=== PATIENT | male | born 1945 | race African-American/Black ===

== ENCOUNTER 2017-03-07 07:32 | Outpatient (CLI) | payer BC ==
[~2017-03-07] VITALS: Ht 174 cm; Wt 108.9 kg
[2017-03-07] MEDS ORDERED: TAMS0.4C2 PO (07:56)
[2017-03-07] MEDS ORDERED: GOSE3.6I SQ (07:56)
[2017-03-07] MEDS ORDERED: FURO40TA4 PO (07:56)
[2017-03-07] MEDS ORDERED: SIMV20TA3 PO (07:56)
[2017-03-07] MEDS ORDERED: VITA1CAP PO (07:56)
[2017-03-07] MEDS ORDERED: ATEN25TA PO (07:56)
[2017-03-07] MEDS ORDERED: ABIR250T PO (07:56)
[2017-03-07] MEDS ORDERED: PRED2.5T PO (07:56)
[2017-03-07] MEDS ORDERED: POTA20TA82 PO (07:56)
[2017-03-07 08:03] LABS: BASO # 0.1 x10^3/uL (0.0-0.2); BASO % 1 % (0-3); EOS % 2 % (0-3); HEMATOCRIT 40.7 % (39.0-53.0); LYMPH # 2.9 x10^3/uL (1.0-4.8); LYMPH % 35 % (24-48); MEAN CORPUSCULAR HEMOGLOBIN 27 pg (25-35); MEAN CORPUSCULAR HGB CONC 32 g/dL (31-37); MEAN CORPUSCULAR VOLUME 85 fL (79-100); MONO % 10 % (0-9); NEUT % 53 % (31-73); PLATELET COUNT 206 x10^3/uL (140-400); RED BLOOD COUNT 4.76 x10^6/uL (4.30-5.70); RED CELL DISTRIBUTION WIDTH 15.2 % (11.5-14.5); WHITE BLOOD COUNT 8.5 x10^3/uL (4.0-11.0)
[2017-03-07 08:13] LABS: PROTHROMBIN TIME PATIENT 12.1 SEC (11.7-14.0)
[2017-03-07 08:15] VITALS: BP 159/90
[2017-03-07] MEDS ORDERED: LIDOCAINE 1%/EPI 1:100,000 20 ML VIAL. ONE (09:26)
[2017-03-07] MEDS ORDERED: MIDAZOLAM HCL/PF 5 MG/5 ML VIAL. ONE (09:38)
[2017-03-07] MEDS ORDERED: fentaNYL PF VIAL 250 MCG/5 ML VIAL ONE (09:38)
--- NOTE | 2017-03-07 09:44 | PDOC ---
MODERATE SEDATION ASSESSMENT RISKS/ALTERNATIVES Risks/Alternatives Risks and alternatives of this type of sedation and procedure discussed with: RISK/ALTERNATIVES: Patient H & P ON CHART H & P H & P on chart and reviewed for co-morbid conditions and appropriate labs. H&P ON CHART: Yes STATUS PREG STATUS ASSESSED: N/A MEDS/ALLERGIES REVIEWED Meds/Allergies Reviewed Medications and Allergies including time and route of recently administered narcotics and sedatives. MEDS/ALLERGIES REVIEWED: Yes ASA RATING ASA RATING: II AIRWAY ASSESSMENT Airway Assessment Airway patency, oral function limitations, presence of caps, crowns, dentures, partials, and ability to extend neck assessed. AIRWAY ASSESSMENT: Yes MALLAMPATI SCORE MALLAMPATI SCORE: II PRE-SEDATION ASSESSMENT PRE-SEDATION ASSESSMENT: Yes KURTIS MAX MD March 07, 2017 09:44
--- NOTE | 2017-03-07 09:47 | PDOC1 ---
History and Physical Date of Procedure Date of Admission 03/07/17 Procedure Procedure Power Port removal Indication Indication 71 YO male with prostate cancer---chemotx complete. Power Port no longer needed. Past Medical History Past Medical History See Nursing Pre procedure PMH Past Surgical History Past Surgical History See Pre Procedure PSH Current Medications Current Medications Current Medications Lidocaine/ Epinephrine (Xylocaine 1%-Epi 1:100,000) 20 ml STK-MED ONCE .ROUTE ; Start 03/07/17 at 09:26; Stop 03/07/17 at 09:27; Status DC Heparin Sodium/ Sodium Chloride 500 ml @ As Directed STK-MED ONCE .ROUTE ; Start 03/07/17 at 09:26; Stop 03/07/17 at 09:27; Status DC Midazolam HCl (Versed) 5 mg STK-MED ONCE .ROUTE ; Start 03/07/17 at 09:38; Stop 03/07/17 at 09:39; Status DC Fentanyl Citrate (Fentanyl 5ml Vial) 250 mcg STK-MED ONCE .ROUTE ; Start at 09:38; Stop 03/07/17 at 09:39; Status DC Active Scripts Active Reported Simvastatin 20 Mg Tablet 1 Tab PO QHS Vitamin B Complex 1 Each Capsule 1 Each PO DAILY Potassium Chloride 20 Meq Tablet.er 20 Meq PO BID Furosemide 40 Mg Tablet 1 Tab PO DAILY Atenolol 25 Mg Tablet 25 Mg PO DAILY Tamsulosin Hcl 0.4 Mg Cap.er.24h 1 Cap PO DAILY Zoladex (Goserelin Acetate) 3.6 Mg Implant 3.6 Mg SQ [id number] Zytiga (Abiraterone Acetate) 250 Mg Tablet 250 Mg PO QID Prednisone 2.5 Mg Tablet 5 Mg PO DAILY Allergies Allergies: Coded Allergies: No Known Drug Allergies (Unverified , 03/07/17) Physical Exam Vital Signs Vital Signs Date Time Temp Pulse Resp B/P (MAP) Pulse Ox O2 Delivery O2 Flow Rate FiO2 03/07/17 08:16 Room Air 03/07/17 08:15 98.1 67 16 159/90 (113) 99 98.1 Lungs: Clear to auscultation Heart: Regular rate Psych/Mental Status: Mental status NL Assessment Assessment 71 YO male with prostate cancer, in remission. Chemotx complete. Power Port no longer needed. Problems: Plan Plan Power Port removal KURTIS MAX MD March 07, 2017 09:47
[2017-03-07] MEDS ORDERED: LIDOCAINE 1%/EPI 1:100,000 20 ML VIAL. INJ ONE (10:00)
[2017-03-07] MEDS ORDERED: MIDAZOLAM HCL/PF 5 MG/5 ML VIAL. IV ONE (10:00)
[2017-03-07] MEDS ORDERED: fentaNYL PF VIAL 250 MCG/5 ML VIAL IV ONE (10:00)
[2017-03-07 10:03] VITALS: BP 138/76
--- NOTE | 2017-03-07 10:19 | PDOC ---
Exam [employer] [facility] Pediatric Clinical Dietician Pediatric Clinical Dietician F Ndumbu Pre-Procedure Diagnosis Pre-Procedure Diagnosis 71 YO male with prostate cancer in remission---chemotx complete. Power Port no longer needed. Post-Procedure Diagnosis Post-Procedure Diagnosis Same Procedure Performed Procedure Performed Removal of rt IJ tunneled Power Port Type of Anesthesia Type of Anesthesia Local + Mod sedation Estimated Blood Loss EBL: Minimal Specimens Specimans Rt IJ 8F tunneled Power Port Condition of Patient Condition of Patient Stable. No apparent complication. Disposition Disposition Home from [facility] post recovery, if no bleeding or other problems. F/u with referring physician. Full report to follow. KURTIS MAX MD March 07, 2017 10:19
[2017-03-07 10:27] VITALS: BP 169/93
[2017-03-07 10:45] VITALS: BP 163/92
--- NOTE | 2017-03-08 07:16 | RAD ---
Removal of Power Port Indication: 71-year-old male with prostate cancer in remission. His indwelling right IJ tunneled power port is no longer needed. Power port removal has been requested. Moderate sedation: 25 minutes moderate sedation was provided utilizing a total of 1 mg Versed and 50 mcg fentanyl, IV. The patient was appropriately monitored by a qualified independent observer throughout the course of the moderate sedation. Sterility: All elements of maximal sterile barrier technique, including the use of a cap, mask, sterile gown, sterile gloves, large sterile sheet, appropriate hand hygiene, and 2% chlorhexidine for cutaneous antisepsis (or acceptable alternative antiseptic per current guidelines) were utilized. Fluoroscopy time: 0.1 Kerma-Area Product: 1 Gycm2 Procedure: Informed consent was obtained from the patient. He was placed supine on the angiography table. Right chest was prepped and draped in the usual sterile fashion, utilizing all elements of maximal sterile barrier technique, as described above. Conscious sedation was provided with IV versed and fentanyl. Using aseptic technique and local anesthesia, a small horizontally oriented skin incision was made overlying body of the indwelling Power Port. Subsequently, using a combination of blunt and sharp dissection, the Power Port body was freed from surrounding soft tissues. The port body and catheter were then easily removed as a single unit, using gentle traction. Hemostasis was achieved using manual pressure over right internal jugular vein. The chest incision was then closed with 4-0 Vicryl, steri-strips, and sterile dressing. Complete removal of the Power Port was confirmed with pre- and post-procedure fluoroscopic spot images. Patient tolerated the procedure well, without apparent complication. Impression: Successful, uneventful removal of right IJ tunneled Power Port, as described.
== END 2017-03-07 11:10 | disposition home or self-care (01) ==
LOC: INTRAD 07:32
PROVIDERS: ATTEND Internal Medicine Hematology & Oncology
DX: Z45.2 Encounter for adjustment and management of vascular access device (principal); C61 Malignant neoplasm of prostate; I10 Essential (primary) hypertension; Z79.01 Long term (current) use of anticoagulants
CPT/HCPCS: 36415; 36590; 77001; 85027; 85610; J2250; J3010; J3490

== ENCOUNTER → 2017-12-18 | Day surgery (SDC) | payer BC ==
[~2017-12-18] MED LIST: LIDOCAINE 1% PF 2 ML VIAL. ID; LIDOCAINE 2% PF Vial for OR 5 ML VIAL.; METOPROLOL TARTRATE 5 MG/5 ML VIAL.; MORPHINE SULFATE 4 MG/ML DISP.SYRIN. IV; ONDANSETRON PF 4 MG/2 ML VIAL. IV; PROCHLORPERAZINE 10 MG/2 ML VIAL. IV; PROPOFOL 20 ML IV; fentaNYL PF VIAL 100 MCG/2 ML VIAL IV
[2017-12-18] MEDS: IV RINGERS,LACTATED 1000ML 1,000 ML IV (08:47)
== END ==
LOC: ENDOS 08:09
DX: K57.30 Diverticulosis of large intestine without perforation or abscess without bleeding (principal); K29.50 Unspecified chronic gastritis without bleeding; E78.00 Pure hypercholesterolemia, unspecified; I12.9 Hypertensive chronic kidney disease with stage 1 through stage 4 chronic kidney disease, or unspecified chronic kidney disease; N18.3 Chronic kidney disease, stage 3 (moderate); Z85.46 Personal history of malignant neoplasm of prostate
CPT/HCPCS: 43239; 88305; 88342; J2704; J3490

== ENCOUNTER → 2018-03-12 | Outpatient (CLI) | payer BC | END | disposition home or self-care (01) | LOC: KCIC DEXA 11:24 | DX: M85.88 Other specified disorders of bone density and structure, other site (principal); Z79.52 Long term (current) use of systemic steroids; Z85.46 Personal history of malignant neoplasm of prostate | CPT/HCPCS: 77080 ==

== ENCOUNTER → 2020-05-04 | Outpatient (CLI) | payer BC ==
[2017-12-18 11:20] VITALS: BP 188/82
[~2020-05-04] MED LIST changes: +ABIR250T PO; +ATEN25TA PO; +FURO40TA4 PO; +GOSE3.6I SQ; -LIDOCAINE 1% PF 2 ML VIAL. ID; -LIDOCAINE 2% PF Vial for OR 5 ML VIAL.; +METO-269 PO; -METOPROLOL TARTRATE 5 MG/5 ML VIAL.; -MORPHINE SULFATE 4 MG/ML DISP.SYRIN. IV; -ONDANSETRON PF 4 MG/2 ML VIAL. IV; +POTA20TA4 PO; +PRED2.5T PO; -PROCHLORPERAZINE 10 MG/2 ML VIAL. IV; -PROPOFOL 20 ML IV; +SIMV20TA18 PO; +SIMV40TA18 PO; +TAMS0.4C2 PO; +VITA1CAP PO; -fentaNYL PF VIAL 100 MCG/2 ML VIAL IV
[2020-05-04 10:17] LABS: BASO % 1 % (0-3); EOS # 0.1 x10^3/uL (0.0-0.7); EOS % 2 % (0-3); HEMATOCRIT 39.3 % (39.0-53.0); HEMOGLOBIN 12.9 g/dL (13.0-17.5); LYMPH # 1.9 x10^3/uL (1.0-4.8); LYMPH % 30 % (24-48); MEAN CORPUSCULAR HEMOGLOBIN 28 pg (25-35); MEAN CORPUSCULAR HGB CONC 33 g/dL (31-37); MEAN CORPUSCULAR VOLUME 84 fL (79-100); MONO # 0.5 x10^3/uL (0.0-1.1); MONO % 8 % (0-9); NEUT # 3.9 x10^3/uL (1.8-7.7); NEUT % 60 % (31-73); PLATELET COUNT 178 x10^3/uL (140-400); RED BLOOD COUNT 4.66 x10^6/uL (4.30-5.70); RED CELL DISTRIBUTION WIDTH 15.7 % (11.5-14.5); WHITE BLOOD COUNT 6.5 x10^3/uL (4.0-11.0)
[2020-05-04 10:36] LABS: CREATININE 1.6 mg/dL (0.7-1.3); GFR 42.5; POTASSIUM 3.3 mmol/L (3.5-5.1)
[2020-05-04 10:46] LABS: ALBUMIN 2.8 g/dL (3.4-5.0); ALBUMIN/GLOBULIN RATIO 0.7 (1.0-1.7); TOTAL PROTEIN 6.9 g/dL (6.4-8.2)
== END | disposition home or self-care (01) ==
LOC: ONCLAB 10:00
PROVIDERS: ATTEND Internal Medicine Hematology & Oncology
DX: C61 Malignant neoplasm of prostate (principal)
CPT/HCPCS: 36415; 80053; 85025; G0103

== ENCOUNTER → 2020-07-14 | Outpatient (CLI) | payer BC ==
[2017-12-18 11:20] VITALS: BP 188/82
[2020-07-14 09:38] LABS: BASO % 1 % (0-3); EOS # 0.1 x10^3/uL (0.0-0.7); EOS % 2 % (0-3); HEMATOCRIT 38.7 % (39.0-53.0); HEMOGLOBIN 12.8 g/dL (13.0-17.5); LYMPH # 2.1 x10^3/uL (1.0-4.8); LYMPH % 32 % (24-48); MEAN CORPUSCULAR HEMOGLOBIN 28 pg (25-35); MEAN CORPUSCULAR HGB CONC 33 g/dL (31-37); MEAN CORPUSCULAR VOLUME 84 fL (79-100); MONO # 0.6 x10^3/uL (0.0-1.1); MONO % 9 % (0-9); NEUT # 3.7 x10^3/uL (1.8-7.7); NEUT % 57 % (31-73); PLATELET COUNT 180 x10^3/uL (140-400); RED BLOOD COUNT 4.59 x10^6/uL (4.30-5.70); RED CELL DISTRIBUTION WIDTH 15.1 % (11.5-14.5); WHITE BLOOD COUNT 6.6 x10^3/uL (4.0-11.0)
[2020-07-14 09:52] LABS: CALCIUM 9.2 mg/dL (8.5-10.1); CREATININE 1.6 mg/dL (0.7-1.3); GFR 42.5; POTASSIUM 3.6 mmol/L (3.5-5.1)
[2020-07-14 09:58] LABS: ALBUMIN 2.7 g/dL (3.4-5.0); ALBUMIN/GLOBULIN RATIO 0.7 (1.0-1.7); TOTAL PROTEIN 6.7 g/dL (6.4-8.2)
== END | disposition home or self-care (01) ==
LOC: ONCLAB 09:21
PROVIDERS: ATTEND Internal Medicine Hematology & Oncology
DX: Z12.5 Encounter for screening for malignant neoplasm of prostate (principal); C61 Malignant neoplasm of prostate
CPT/HCPCS: 36415; 80053; 83615; 85025; G0103

== ENCOUNTER → 2020-08-10 | Outpatient (CLI) | payer BC ==
[2017-12-18 11:20] VITALS: BP 188/82
--- NOTE | 2020-08-11 09:08 | KCIC ---
EXAM: Dual energy x-ray absorptiometry (DEXA). HISTORY: Osteopenia, prostate cancer. COMPARISON: 03/12/2018. TECHNIQUE: Dual energy x-ray absorptiometry of the lumbar spine and left hip was performed. Calculation of bone mineral density based on standard deviations above or below the expected young adult normal value (T-score) was completed. FINDINGS: The average bone mineral density in the 1st through 4th lumbar vertebrae is 1.357 g/cmxcm, corresponding with a T-score of 2.4. The average total bone mineral density in the left hip is 0.876 g/cmxcm, corresponding with a T-score of -1.0. IMPRESSION: Findings are within the range of normal bone density with relation of the spine and osteopenia with relation to the left hip. There is +5.1% change with relation to the spine and 0.7% change with relation of the left hip since the prior summation from 03/12/2018. Note: Definitions established by the World Health Organization: 1. Normal: T-score is -1.0 or above. 2. Osteopenia: T-score is between -1.0 and -2.5 . 3. Osteoporosis: T-score is -2.5 or below. Electronically signed by: Aissatou Martin MD (08/11/2020 9:05 AM) [id number]
== END ==
LOC: KCIC DEXA 12:52
PROVIDERS: ATTEND Internal Medicine Hematology & Oncology
DX: C61 Malignant neoplasm of prostate (principal); M85.88 Other specified disorders of bone density and structure, other site
CPT/HCPCS: 77080

== ENCOUNTER → 2020-11-08 | Outpatient (CLI) | payer BC ==
[2017-12-18 11:20] VITALS: BP 188/82
[2020-11-08 12:39] LABS: BASO # 0.1 x10^3/uL (0.0-0.2); BASO % 1 % (0-3); EOS % 0 % (0-3); HEMATOCRIT 39.9 % (39.0-53.0); HEMOGLOBIN 13.1 g/dL (13.0-17.5); LYMPH # 2.1 x10^3/uL (1.0-4.8); LYMPH % 24 % (24-48); MEAN CORPUSCULAR HEMOGLOBIN 28 pg (25-35); MEAN CORPUSCULAR HGB CONC 33 g/dL (31-37); MEAN CORPUSCULAR VOLUME 84 fL (79-100); MONO # 0.5 x10^3/uL (0.0-1.1); MONO % 6 % (0-9); NEUT # 6.1 x10^3/uL (1.8-7.7); NEUT % 70 % (31-73); PLATELET COUNT 194 x10^3/uL (140-400); RED BLOOD COUNT 4.77 x10^6/uL (4.30-5.70); RED CELL DISTRIBUTION WIDTH 16.1 % (11.5-14.5); WHITE BLOOD COUNT 8.8 x10^3/uL (4.0-11.0)
[2020-11-08 12:49] LABS: CREATININE 1.7 mg/dL (0.7-1.3); GFR 39.6; POTASSIUM 4.6 mmol/L (3.5-5.1)
[2020-11-08 12:56] LABS: ALBUMIN/GLOBULIN RATIO 0.8 (1.0-1.7)
[2020-11-09 15:12] LABS: FREE PSA/PSA RATIO 21.9 % (.); PSA FREE 1.27 ng/mL; PSA TOTAL 5.8 ng/mL (0.0-4.0)
== END ==
LOC: ONCLAB 12:13
PROVIDERS: ATTEND Internal Medicine Hematology & Oncology
DX: C61 Malignant neoplasm of prostate (principal)
CPT/HCPCS: 36415; 80053; 84153; 84154; 85025

== ENCOUNTER → 2021-02-14 | Outpatient (CLI) | payer BC ==
[2017-12-18 11:20] VITALS: BP 188/82
[2021-02-14 12:26] LABS: BASO # 0.1 x10^3/uL (0.0-0.2); BASO % 1 % (0-3); EOS # 0.1 x10^3/uL (0.0-0.7); EOS % 1 % (0-3); HEMATOCRIT 37.7 % (39.0-53.0); HEMOGLOBIN 12.7 g/dL (13.0-17.5); LYMPH # 2.3 x10^3/uL (1.0-4.8); LYMPH % 27 % (24-48); MEAN CORPUSCULAR HEMOGLOBIN 28 pg (25-35); MEAN CORPUSCULAR HGB CONC 34 g/dL (31-37); MEAN CORPUSCULAR VOLUME 83 fL (79-100); MONO # 0.7 x10^3/uL (0.0-1.1); MONO % 9 % (0-9); NEUT # 5.3 x10^3/uL (1.8-7.7); NEUT % 63 % (31-73); PLATELET COUNT 189 x10^3/uL (140-400); RED BLOOD COUNT 4.56 x10^6/uL (4.30-5.70); RED CELL DISTRIBUTION WIDTH 15.7 % (11.5-14.5); WHITE BLOOD COUNT 8.4 x10^3/uL (4.0-11.0)
[2021-02-14 12:39] LABS: CALCIUM 8.9 mg/dL (8.5-10.1); CREATININE 1.6 mg/dL (0.7-1.3); GFR 42.5; POTASSIUM 3.8 mmol/L (3.5-5.1)
[2021-02-14 12:45] LABS: ALBUMIN 2.7 g/dL (3.4-5.0); ALBUMIN/GLOBULIN RATIO 0.6 (1.0-1.7); TOTAL BILIRUBIN 1.2 mg/dL (0.2-1.0)
[2021-02-15 16:10] LABS: FREE PSA/PSA RATIO 15.8 % (.); PSA FREE 1.71 ng/mL; PSA TOTAL 10.8 ng/mL (0.0-4.0)
== END ==
LOC: ONCLAB 12:07
PROVIDERS: ATTEND Physician Assistant
DX: C61 Malignant neoplasm of prostate (principal)
CPT/HCPCS: 36415; 80053; 84153; 84154; 85025

== ENCOUNTER → 2021-02-18 | Outpatient (CLI) | payer BC ==
[2017-12-18 11:20] VITALS: BP 188/82
[2021-02-18 10:15] LABS: BASO % 1 % (0-3); EOS # 0.1 x10^3/uL (0.0-0.7); EOS % 2 % (0-3); HEMATOCRIT 39.5 % (39.0-53.0); HEMOGLOBIN 12.9 g/dL (13.0-17.5); LYMPH # 2.3 x10^3/uL (1.0-4.8); LYMPH % 27 % (24-48); MEAN CORPUSCULAR HEMOGLOBIN 27 pg (25-35); MEAN CORPUSCULAR HGB CONC 33 g/dL (31-37); MEAN CORPUSCULAR VOLUME 84 fL (79-100); MONO # 0.7 x10^3/uL (0.0-1.1); MONO % 9 % (0-9); NEUT # 5.2 x10^3/uL (1.8-7.7); NEUT % 62 % (31-73); PLATELET COUNT 208 x10^3/uL (140-400); RED BLOOD COUNT 4.72 x10^6/uL (4.30-5.70); RED CELL DISTRIBUTION WIDTH 15.8 % (11.5-14.5); WHITE BLOOD COUNT 8.4 x10^3/uL (4.0-11.0)
[2021-02-18 10:51] LABS: CALCIUM 8.9 mg/dL (8.5-10.1); CREATININE 1.6 mg/dL (0.7-1.3); GFR 42.5; POTASSIUM 3.3 mmol/L (3.5-5.1)
[2021-02-18 11:01] LABS: ALBUMIN/GLOBULIN RATIO 0.7 (1.0-1.7); TOTAL BILIRUBIN 0.5 mg/dL (0.2-1.0); TOTAL PROTEIN 7.3 g/dL (6.4-8.2)
== END ==
LOC: ONCLAB 09:52
PROVIDERS: ATTEND Internal Medicine
DX: C61 Malignant neoplasm of prostate (principal)
CPT/HCPCS: 80053; 82248; 84402; 84403; 85025

== ENCOUNTER → 2021-02-24 | Outpatient (CLI) | payer BC ==
[2017-12-18 11:20] VITALS: BP 188/82
[~2021-02-24] MED LIST changes: +IOHEXOL 240 MG/ML 50ML VIAL. PO ONE
--- NOTE | 2021-02-24 14:49 | RAD ---
EXAM: CT Chest, Abdomen and Pelvis without IV contrast CLINICAL HISTORY: Prostate cancer COMPARISON: 06/29/2011 TECHNIQUE: Helical CT of the chest, abdomen and pelvis was performed without intravenous contrast. Ax ial, coronal and sagittal reformatted images were generated. ---PQRS compliance statement - One or more of the following individualized dose reduction techniques were utilized for this study: 1. Automated exposure control 2. Adjustment of the mA and/or kV according to patient size 3. Use of iterative reconstruction technique--- FINDINGS: Lack of intravenous contrast limits evaluation of solid organs, vasculature, and lymph nodes. Chest: Thyroid is unremarkable. No axillary lymphadenopathy. No mediastinal or hilar lymphadenopathy. Calci fied mediastinal and hilar lymph nodes. Heart is not enlarged. Coronary aortic root calcifications are seen. Bilateral pleural effusions are seen. No pneumothorax. A 2.4 x 2 cm nodular density is seen in the posterior left lower lobe. Linear opacities lower lobes l ikely scarring/atelectasis. Vague groundglass opacities lower lobes and bilateral upper lobes. Emphys ematous changes are seen bilaterally. 1.4 x 0.9 cm left apical lung nodule is seen. A 1.8 x 0.8 cm ri ght apical lung nodule is seen. Abdomen and Pelvis: Subcentimeter hypodense right hepatic lobe lesion is too small to accurately characterize.. High dens ity material within the gallbladder likely sludge. No biliary duct dilatation. Pancreas is unremarkab le. Spleen is normal in appearance. Adrenal glands are unremarkable. Left lower pole renal cyst is se en. No hydronephrosis. No hydroureter. Focal nodularity in the right bladder measuring 2.7 cm may be from the prostate, bladder mass or bladder hematoma. Aortic calcifications are seen. Abdominal aortic aneurysm measures 5.1 x 5.4 cm. Aneurysmal dilatatio n of the common iliac arteries bilaterally. Prostate is unremarkable. Colonic diverticulosis without evidence for acute diverticulitis. No small or large bowel dilatation. No bowel obstruction. No abdominal or pelvic lymphadenopathy. No abdominal or pelvic ascites. Bones: Dense sclerosis of several of the osseous structures from known metastatic disease including the left iliac bone, vertebral bodies sacrum. IMPRESSION: 1. Bilateral pleural effusions are seen. 2. Left lower lobe lung mass measures 2.4 cm. This may represent metastatic disease. If further imag ing is clinically required, can be further assessed by PET/CT or contrast enhanced CT chest. 3. Biapical lung nodules, recommend close attention on follow-up. 4. Nodularity within the bladder, possibly bladder mass or nodular extension of the underlying prost ate. Rounded bladder hematoma may also have this appearance. 5. Abdominal aortic aneurysm measuring up to 5.4 cm. 6. Colonic diverticulosis 7. Sclerotic bony lesions likely metastatic disease. Findings including abdominal aortic aneurysm measuring 5.4 cm discussed with [facility] at [facility] ([phone]). Electronically signed by: Simon Mayfield MD (02/24/2021 2:46 PM) [facility]2
--- NOTE | 2021-02-25 09:56 | RAD ---
Nuclear medicine whole body bone scan History: Prostate cancer. Comparison: Whole-body bone scan June 29, 2011. CT chest abdomen and pelvis without contrast February 24, 2021. Technique: Examination performed after intravenous administration of 25.5 mCi Technetium 99m MDP. [facility] le-body planar static images were obtained in the anterior and posterior projections. Findings: There is asymmetric increased tracer uptake of the left iliac bone compared to the right. Finding is similar to prior study. Sclerotic change of the left iliac bone as seen on CT. Foci of uptake in the thoracolumbar spine have increased from the prior bone scan. For example of the T11 vertebral body, sclerotic lesion is seen on CT. Uptake in the spine is moderately heterogeneous. Increased tracer uptake of the bilateral shoulders is again noted. Tracer uptake near the right gleno id has increased in size and intensity from prior study. Tracer uptake in ribs is symmetric. There is faint cortical tracer uptake along the bilateral tibia w hich raises possibility of hypertrophic osteoarthropathy. Tracer distribution in the soft tissues appears similar to prior study. IMPRESSION: 1. There is increased tracer uptake in the thoracolumbar lumbar spine compared to the prior bone sca n suggesting increased metastatic disease, for example at the T11 vertebral body. 2. Sclerotic lesion with increased uptake of the left iliac bone is similar to prior bone scan. 3. There is increased size and intensity of tracer uptake near the right glenoid. Consider correlati on with radiographs. Electronically signed by: Tate Land MD (02/25/2021 9:53 AM) [id number]
== END ==
LOC: NM 08:23
PROVIDERS: ATTEND Internal Medicine
DX: C61 Malignant neoplasm of prostate (principal); E80.7 Disorder of bilirubin metabolism, unspecified; J90 Pleural effusion, not elsewhere classified; R91.8 Other nonspecific abnormal finding of lung field; K57.30 Diverticulosis of large intestine without perforation or abscess without bleeding
CPT/HCPCS: 71250; 74176; 78306; A9503

== ENCOUNTER → 2021-02-24 | Outpatient (CLI) | payer BC ==
[2017-12-18 11:20] VITALS: BP 188/82
[~2021-02-24] MED LIST changes: -IOHEXOL 240 MG/ML 50ML VIAL. PO ONE
[2021-02-24 14:19] LABS: BASO # 0.1 x10^3/uL (0.0-0.2); BASO % 1 % (0-3); EOS % 1 % (0-3); HEMATOCRIT 38.4 % (39.0-53.0); HEMOGLOBIN 12.8 g/dL (13.0-17.5); LYMPH # 1.9 x10^3/uL (1.0-4.8); LYMPH % 26 % (24-48); MEAN CORPUSCULAR HEMOGLOBIN 28 pg (25-35); MEAN CORPUSCULAR HGB CONC 33 g/dL (31-37); MEAN CORPUSCULAR VOLUME 83 fL (79-100); MONO # 0.6 x10^3/uL (0.0-1.1); MONO % 9 % (0-9); NEUT # 4.6 x10^3/uL (1.8-7.7); NEUT % 63 % (31-73); PLATELET COUNT 195 x10^3/uL (140-400); RED BLOOD COUNT 4.63 x10^6/uL (4.30-5.70); RED CELL DISTRIBUTION WIDTH 15.6 % (11.5-14.5); WHITE BLOOD COUNT 7.3 x10^3/uL (4.0-11.0)
[2021-02-24 14:28] LABS: CREATININE 1.9 mg/dL (0.7-1.3); GFR 34.8; POTASSIUM 3.8 mmol/L (3.5-5.1)
[2021-02-24 14:34] LABS: ALBUMIN 2.7 g/dL (3.4-5.0); ALBUMIN/GLOBULIN RATIO 0.6 (1.0-1.7); TOTAL BILIRUBIN 1.3 mg/dL (0.2-1.0); TOTAL PROTEIN 6.9 g/dL (6.4-8.2)
== END ==
LOC: ONCLAB 13:58
PROVIDERS: ATTEND Physician Assistant
DX: C61 Malignant neoplasm of prostate (principal)
CPT/HCPCS: 36415; 80053; 83615; 85025

== ENCOUNTER → 2021-03-04 | Outpatient (CLI) | payer BC ==
[2017-12-18 11:20] VITALS: BP 188/82
[2021-03-04 11:19] LABS: BASO % 1 % (0-3); EOS # 0.1 x10^3/uL (0.0-0.7); EOS % 2 % (0-3); HEMATOCRIT 37.8 % (39.0-53.0); HEMOGLOBIN 12.3 g/dL (13.0-17.5); LYMPH # 1.8 x10^3/uL (1.0-4.8); LYMPH % 25 % (24-48); MEAN CORPUSCULAR HEMOGLOBIN 27 pg (25-35); MEAN CORPUSCULAR HGB CONC 33 g/dL (31-37); MEAN CORPUSCULAR VOLUME 83 fL (79-100); MONO # 0.8 x10^3/uL (0.0-1.1); MONO % 11 % (0-9); NEUT # 4.5 x10^3/uL (1.8-7.7); NEUT % 62 % (31-73); PLATELET COUNT 186 x10^3/uL (140-400); RED BLOOD COUNT 4.54 x10^6/uL (4.30-5.70); WHITE BLOOD COUNT 7.3 x10^3/uL (4.0-11.0)
[2021-03-04 11:52] LABS: CREATININE 1.7 mg/dL (0.7-1.3); GFR 39.6; POTASSIUM 3.4 mmol/L (3.5-5.1)
[2021-03-04 11:59] LABS: ALBUMIN 2.9 g/dL (3.4-5.0); ALBUMIN/GLOBULIN RATIO 0.7 (1.0-1.7); TOTAL BILIRUBIN 0.8 mg/dL (0.2-1.0); TOTAL PROTEIN 7.3 g/dL (6.4-8.2)
[2021-03-08 18:14] LABS: FREE PSA/PSA RATIO 41.2 % (.); PSA FREE 2.06 ng/mL
== END ==
LOC: ONCLAB 10:05
PROVIDERS: ATTEND Internal Medicine Hematology & Oncology
DX: C61 Malignant neoplasm of prostate (principal)
CPT/HCPCS: 36415; 80053; 84153; 84154; 85025

== ENCOUNTER → 2021-03-11 | Outpatient (CLI) | payer BC ==
[2017-12-18 11:20] VITALS: BP 188/82
[2021-03-11 10:24] LABS: BASO % 1 % (0-3); EOS # 0.1 x10^3/uL (0.0-0.7); EOS % 2 % (0-3); HEMATOCRIT 37.5 % (39.0-53.0); HEMOGLOBIN 12.3 g/dL (13.0-17.5); LYMPH # 2.2 x10^3/uL (1.0-4.8); LYMPH % 30 % (24-48); MEAN CORPUSCULAR HEMOGLOBIN 27 pg (25-35); MEAN CORPUSCULAR HGB CONC 33 g/dL (31-37); MEAN CORPUSCULAR VOLUME 82 fL (79-100); MONO # 0.8 x10^3/uL (0.0-1.1); MONO % 10 % (0-9); NEUT # 4.3 x10^3/uL (1.8-7.7); NEUT % 57 % (31-73); PLATELET COUNT 215 x10^3/uL (140-400); RED BLOOD COUNT 4.55 x10^6/uL (4.30-5.70); RED CELL DISTRIBUTION WIDTH 15.7 % (11.5-14.5); WHITE BLOOD COUNT 7.5 x10^3/uL (4.0-11.0)
[2021-03-11 10:36] LABS: CREATININE 1.8 mg/dL (0.7-1.3); GFR 37.1
[2021-03-11 10:42] LABS: ALBUMIN 2.6 g/dL (3.4-5.0); ALBUMIN/GLOBULIN RATIO 0.6 (1.0-1.7); TOTAL BILIRUBIN 0.8 mg/dL (0.2-1.0); TOTAL PROTEIN 7.2 g/dL (6.4-8.2)
== END ==
LOC: ONCLAB 09:54
PROVIDERS: ATTEND Internal Medicine Hematology & Oncology
DX: C61 Malignant neoplasm of prostate (principal)
CPT/HCPCS: 80053; 84153; 84154; 85025

== ENCOUNTER → 2021-03-23 | Outpatient (CLI) | payer BC ==
[2017-12-18 11:20] VITALS: BP 188/82
[2021-03-23 09:12] LABS: BASO % 1 % (0-3); EOS # 0.1 x10^3/uL (0.0-0.7); EOS % 2 % (0-3); HEMATOCRIT 35.3 % (39.0-53.0); HEMOGLOBIN 11.7 g/dL (13.0-17.5); LYMPH # 1.9 x10^3/uL (1.0-4.8); LYMPH % 38 % (24-48); MEAN CORPUSCULAR HEMOGLOBIN 27 pg (25-35); MEAN CORPUSCULAR HGB CONC 33 g/dL (31-37); MEAN CORPUSCULAR VOLUME 82 fL (79-100); MONO # 0.5 x10^3/uL (0.0-1.1); MONO % 10 % (0-9); NEUT # 2.5 x10^3/uL (1.8-7.7); NEUT % 50 % (31-73); PLATELET COUNT 210 x10^3/uL (140-400); RED BLOOD COUNT 4.33 x10^6/uL (4.30-5.70); RED CELL DISTRIBUTION WIDTH 15.7 % (11.5-14.5)
[2021-03-23 09:22] LABS: CALCIUM 9.1 mg/dL (8.5-10.1); CREATININE 1.9 mg/dL (0.7-1.3); GFR 34.7; POTASSIUM 3.8 mmol/L (3.5-5.1)
[2021-03-23 09:27] LABS: ALBUMIN 2.8 g/dL (3.4-5.0); ALBUMIN/GLOBULIN RATIO 0.7 (1.0-1.7); MAGNESIUM 2.1 mg/dL (1.8-2.4); PHOSPHORUS 2.8 mg/dL (2.6-4.7); TOTAL BILIRUBIN 0.8 mg/dL (0.2-1.0); TOTAL PROTEIN 6.9 g/dL (6.4-8.2)
== END ==
LOC: ONCLAB 08:54
PROVIDERS: ATTEND Internal Medicine Hematology & Oncology
DX: C61 Malignant neoplasm of prostate (principal); R94.5 Abnormal results of liver function studies
CPT/HCPCS: 36415; 80053; 83615; 83735; 84100; 85025

== ENCOUNTER → 2021-04-06 | Outpatient (CLI) | payer BC ==
[2017-12-18 11:20] VITALS: BP 188/82
[2021-04-06 10:54] LABS: BASO % 1 % (0-3); EOS # 0.1 x10^3/uL (0.0-0.7); EOS % 1 % (0-3); HEMATOCRIT 36.1 % (39.0-53.0); LYMPH # 1.8 x10^3/uL (1.0-4.8); LYMPH % 28 % (24-48); MEAN CORPUSCULAR HEMOGLOBIN 28 pg (25-35); MEAN CORPUSCULAR HGB CONC 33 g/dL (31-37); MEAN CORPUSCULAR VOLUME 84 fL (79-100); MONO # 0.5 x10^3/uL (0.0-1.1); MONO % 8 % (0-9); NEUT # 4.1 x10^3/uL (1.8-7.7); NEUT % 63 % (31-73); PLATELET COUNT 185 x10^3/uL (140-400); RED CELL DISTRIBUTION WIDTH 17.2 % (11.5-14.5); WHITE BLOOD COUNT 6.6 x10^3/uL (4.0-11.0)
[2021-04-06 10:59] LABS: GFR 32.7; POTASSIUM 4.1 mmol/L (3.5-5.1)
[2021-04-06 11:06] LABS: ALBUMIN/GLOBULIN RATIO 0.8 (1.0-1.7); MAGNESIUM 2.1 mg/dL (1.8-2.4); PHOSPHORUS 3.1 mg/dL (2.6-4.7); TOTAL BILIRUBIN 0.8 mg/dL (0.2-1.0); TOTAL PROTEIN 6.8 g/dL (6.4-8.2)
== END ==
LOC: ONCLAB 09:31
PROVIDERS: ATTEND Physician Assistant
DX: C61 Malignant neoplasm of prostate (principal)
CPT/HCPCS: 80053; 83615; 83735; 84100; 84153; 84154; 85025

== ENCOUNTER → 2021-04-27 | Outpatient (CLI) | payer BC ==
[2017-12-18 11:20] VITALS: BP 188/82
[2021-04-27 10:56] LABS: BASO # 0.1 x10^3/uL (0.0-0.2); BASO % 1 % (0-3); EOS # 0.1 x10^3/uL (0.0-0.7); EOS % 1 % (0-3); HEMATOCRIT 37.6 % (39.0-53.0); HEMOGLOBIN 12.2 g/dL (13.0-17.5); LYMPH # 2.2 x10^3/uL (1.0-4.8); LYMPH % 30 % (24-48); MEAN CORPUSCULAR HEMOGLOBIN 28 pg (25-35); MEAN CORPUSCULAR HGB CONC 33 g/dL (31-37); MEAN CORPUSCULAR VOLUME 86 fL (79-100); MONO # 0.6 x10^3/uL (0.0-1.1); MONO % 8 % (0-9); NEUT # 4.4 x10^3/uL (1.8-7.7); NEUT % 60 % (31-73); PLATELET COUNT 185 x10^3/uL (140-400); RED BLOOD COUNT 4.38 x10^6/uL (4.30-5.70); RED CELL DISTRIBUTION WIDTH 19.1 % (11.5-14.5); WHITE BLOOD COUNT 7.2 x10^3/uL (4.0-11.0)
[2021-04-27 11:08] LABS: CALCIUM 9.8 mg/dL (8.5-10.1); GFR 32.7; POTASSIUM 3.8 mmol/L (3.5-5.1)
[2021-04-27 11:13] LABS: ALBUMIN 2.9 g/dL (3.4-5.0); ALBUMIN/GLOBULIN RATIO 0.6 (1.0-1.7); MAGNESIUM 1.9 mg/dL (1.8-2.4); PHOSPHORUS 3.2 mg/dL (2.6-4.7); TOTAL BILIRUBIN 1.2 mg/dL (0.2-1.0); TOTAL PROTEIN 7.4 g/dL (6.4-8.2)
== END ==
LOC: ONCLAB 10:38
PROVIDERS: ATTEND Physician Assistant
DX: C61 Malignant neoplasm of prostate (principal); I10 Essential (primary) hypertension; Z79.899 Other long term (current) drug therapy
CPT/HCPCS: 36415; 80053; 82306; 83615; 83735; 84100; 85025

== ENCOUNTER → 2021-05-18 | Outpatient (CLI) | payer BC ==
[2017-12-18 11:20] VITALS: BP 188/82
[2021-05-18 11:14] LABS: BASO # 0.1 x10^3/uL (0.0-0.2); BASO % 1 % (0-3); EOS # 0.1 x10^3/uL (0.0-0.7); EOS % 2 % (0-3); HEMATOCRIT 35.8 % (39.0-53.0); HEMOGLOBIN 11.6 g/dL (13.0-17.5); LYMPH # 2.1 x10^3/uL (1.0-4.8); LYMPH % 29 % (24-48); MEAN CORPUSCULAR HEMOGLOBIN 28 pg (25-35); MEAN CORPUSCULAR HGB CONC 33 g/dL (31-37); MEAN CORPUSCULAR VOLUME 87 fL (79-100); MONO # 0.7 x10^3/uL (0.0-1.1); MONO % 9 % (0-9); NEUT # 4.3 x10^3/uL (1.8-7.7); NEUT % 60 % (31-73); PLATELET COUNT 202 x10^3/uL (140-400); RED BLOOD COUNT 4.12 x10^6/uL (4.30-5.70); RED CELL DISTRIBUTION WIDTH 18.9 % (11.5-14.5); WHITE BLOOD COUNT 7.2 x10^3/uL (4.0-11.0)
[2021-05-18 11:35] LABS: CALCIUM 9.2 mg/dL (8.5-10.1); CREATININE 1.8 mg/dL (0.7-1.3)
[2021-05-18 11:45] LABS: ALBUMIN 2.7 g/dL (3.4-5.0); ALBUMIN/GLOBULIN RATIO 0.6 (1.0-1.7); MAGNESIUM 2.1 mg/dL (1.8-2.4); TOTAL BILIRUBIN 0.7 mg/dL (0.2-1.0); TOTAL PROTEIN 6.9 g/dL (6.4-8.2)
[2021-05-19 16:11] LABS: FREE PSA/PSA RATIO 19.1 % (.); PSA FREE 2.18 ng/mL; PSA TOTAL 11.4 ng/mL (0.0-4.0)
== END ==
LOC: ONCLAB 10:15
PROVIDERS: ATTEND Internal Medicine Hematology & Oncology
DX: C61 Malignant neoplasm of prostate (principal)
CPT/HCPCS: 36415; 80053; 83615; 83735; 84100; 84153; 84154; 85025

== ENCOUNTER → 2021-06-01 | Outpatient (CLI) | payer BC ==
[2017-12-18 11:20] VITALS: BP 188/82
[2021-06-01 10:50] LABS: BASO % 1 % (0-3); EOS # 0.1 x10^3/uL (0.0-0.7); EOS % 2 % (0-3); HEMATOCRIT 35.5 % (39.0-53.0); HEMOGLOBIN 11.8 g/dL (13.0-17.5); LYMPH # 1.8 x10^3/uL (1.0-4.8); LYMPH % 29 % (24-48); MEAN CORPUSCULAR HEMOGLOBIN 29 pg (25-35); MEAN CORPUSCULAR HGB CONC 33 g/dL (31-37); MEAN CORPUSCULAR VOLUME 86 fL (79-100); MONO # 0.5 x10^3/uL (0.0-1.1); MONO % 8 % (0-9); NEUT # 3.8 x10^3/uL (1.8-7.7); NEUT % 60 % (31-73); PLATELET COUNT 196 x10^3/uL (140-400); RED BLOOD COUNT 4.13 x10^6/uL (4.30-5.70); RED CELL DISTRIBUTION WIDTH 18.8 % (11.5-14.5); WHITE BLOOD COUNT 6.3 x10^3/uL (4.0-11.0)
[2021-06-01 11:00] LABS: CALCIUM 9.2 mg/dL (8.5-10.1); CREATININE 1.9 mg/dL (0.7-1.3); GFR 34.7; POTASSIUM 4.1 mmol/L (3.5-5.1)
[2021-06-01 11:05] LABS: ALBUMIN 2.8 g/dL (3.4-5.0); ALBUMIN/GLOBULIN RATIO 0.6 (1.0-1.7); MAGNESIUM 1.9 mg/dL (1.8-2.4); PHOSPHORUS 2.8 mg/dL (2.6-4.7); TOTAL BILIRUBIN 0.6 mg/dL (0.2-1.0); TOTAL PROTEIN 7.2 g/dL (6.4-8.2)
== END ==
LOC: ONCLAB 10:17
PROVIDERS: ATTEND Internal Medicine Hematology & Oncology
DX: C61 Malignant neoplasm of prostate (principal)
CPT/HCPCS: 36415; 80053; 83735; 84100; 85025

== ENCOUNTER → 2021-06-29 | Outpatient (CLI) | payer BC ==
[2017-12-18 11:20] VITALS: BP 188/82
[2021-06-29 11:28] LABS: BASO % 1 % (0-3); EOS # 0.2 x10^3/uL (0.0-0.7); EOS % 2 % (0-3); HEMATOCRIT 35.3 % (39.0-53.0); HEMOGLOBIN 11.6 g/dL (13.0-17.5); LYMPH % 31 % (24-48); MEAN CORPUSCULAR HEMOGLOBIN 29 pg (25-35); MEAN CORPUSCULAR HGB CONC 33 g/dL (31-37); MEAN CORPUSCULAR VOLUME 87 fL (79-100); MONO # 0.6 x10^3/uL (0.0-1.1); MONO % 9 % (0-9); NEUT # 3.7 x10^3/uL (1.8-7.7); NEUT % 57 % (31-73); PLATELET COUNT 201 x10^3/uL (140-400); RED BLOOD COUNT 4.08 x10^6/uL (4.30-5.70); RED CELL DISTRIBUTION WIDTH 17.1 % (11.5-14.5); WHITE BLOOD COUNT 6.4 x10^3/uL (4.0-11.0)
[2021-06-29 11:33] LABS: CALCIUM 9.2 mg/dL (8.5-10.1); CREATININE 1.9 mg/dL (0.7-1.3); GFR 34.7
[2021-06-29 11:43] LABS: ALBUMIN 2.6 g/dL (3.4-5.0); ALBUMIN/GLOBULIN RATIO 0.6 (1.0-1.7); TOTAL BILIRUBIN 0.9 mg/dL (0.2-1.0); TOTAL PROTEIN 6.9 g/dL (6.4-8.2)
== END ==
LOC: ONCLAB 10:50
PROVIDERS: ATTEND Internal Medicine Hematology & Oncology
DX: C61 Malignant neoplasm of prostate (principal)
CPT/HCPCS: 36415; 80053; 83615; 83735; 84100; 85025

== ENCOUNTER → 2021-08-11 | Outpatient (CLI) | payer BC ==
[2017-12-18 11:20] VITALS: BP 188/82
[2021-08-11 10:12] LABS: BASO % 1 % (0-3); EOS # 0.1 x10^3/uL (0.0-0.7); EOS % 2 % (0-3); HEMOGLOBIN 12.5 g/dL (13.0-17.5); LYMPH # 1.7 x10^3/uL (1.0-4.8); LYMPH % 32 % (24-48); MEAN CORPUSCULAR HEMOGLOBIN 29 pg (25-35); MEAN CORPUSCULAR HGB CONC 33 g/dL (31-37); MEAN CORPUSCULAR VOLUME 87 fL (79-100); MONO # 0.5 x10^3/uL (0.0-1.1); MONO % 8 % (0-9); NEUT # 3.2 x10^3/uL (1.8-7.7); NEUT % 58 % (31-73); PLATELET COUNT 180 x10^3/uL (140-400); RED BLOOD COUNT 4.38 x10^6/uL (4.30-5.70); RED CELL DISTRIBUTION WIDTH 15.7 % (11.5-14.5); WHITE BLOOD COUNT 5.5 x10^3/uL (4.0-11.0)
[2021-08-11 10:27] LABS: CALCIUM 8.6 mg/dL (8.5-10.1); CREATININE 1.8 mg/dL (0.7-1.3); POTASSIUM 3.5 mmol/L (3.5-5.1)
[2021-08-11 10:34] LABS: ALBUMIN 2.7 g/dL (3.4-5.0); ALBUMIN/GLOBULIN RATIO 0.7 (1.0-1.7); MAGNESIUM 1.9 mg/dL (1.8-2.4); PHOSPHORUS 2.7 mg/dL (2.6-4.7); TOTAL BILIRUBIN 0.9 mg/dL (0.2-1.0); TOTAL PROTEIN 6.8 g/dL (6.4-8.2)
[2021-08-13 16:10] LABS: FREE PSA/PSA RATIO 1.8 % (.); PSA FREE 0.34 ng/mL; PSA TOTAL 19.4 ng/mL (0.0-4.0)
== END ==
LOC: ONCLAB 09:35
PROVIDERS: ATTEND Internal Medicine Hematology & Oncology
DX: C61 Malignant neoplasm of prostate (principal)
CPT/HCPCS: 36415; 80053; 83615; 83735; 84100; 84153; 84154; 85025

== ENCOUNTER → 2021-08-25 | Outpatient (CLI) | payer BC ==
[2017-12-18 11:20] VITALS: BP 188/82
[~2021-08-25] MED LIST changes: +CONTRAST GIVEN. MC PRN; +IOHEXOL 240 MG/ML 50ML VIAL. PO ONE
--- NOTE | 2021-08-25 15:58 | RAD ---
EXAM: CT CHEST, ABDOMEN, AND PELVIS WITHOUT CONTRAST INDICATION: Prostate cancer COMPARISON: CT chest abdomen pelvis 02/24/2021 TECHNIQUE: Helical CT imaging performed of the chest, abdomen and pelvis without the use of intraveno us contrast. Sagittal and coronal reformats were obtained. One or more of the following individualized dose reduction techniques were utilized for this examinat ion: 1. Automated exposure control 2. Adjustment of the mA and/or kV according to patient size 3. Use of iterative reconstruction technique. FINDINGS: CHEST: Thyroid gland and thoracic inlet: Unremarkable. Heart and great vessels: Heart is at the upper normal in size. There are coronary artery calcificatio ns. No pericardial effusion. The thoracic aorta is normal in caliber. Mediastinum and peace: No mediastinal or hilar lymphadenopathy. There are calcified mediastinal and le ft hilar lymph nodes. Lungs and pleura: Unchanged small to moderate bilateral pleural effusions. A subpleural mass versus r ound atelectasis in the posterior left lower lobe measuring 2.5 x 1.6 cm is unchanged (image 43). Sub pleural consolidation in the posterior right lower lobe is also unchanged. Moderate emphysema with in terstitial changes in the lung apices. A 1.3 x 1.1 cm ground glass opacity in the left upper lobe is unchanged (image 17). 1.2 x 0.6 cm groundglass opacity in the left apex is unchanged (image 9). A 1.4 x 0.7 cm groundglass opacity in the right apex is unchanged (image 10). There is mild atelectasis in the posterior right upper lobe, unchanged. Chest wall and axillae: Multiple collateral vessels are seen in the right chest wall. There are 2 unc hanged prominent right axillary lymph nodes measuring up to 7 mm short axis (image 24). Bones: There are unchanged sclerotic lesion in T11, T7, and T8. ABDOMEN AND PELVIS: Liver: Unremarkable appearance of the liver. Gallbladder/Biliary Tree: Normal. Pancreas: Normal. Spleen: No splenomegaly. There are calcified splenic granulomas. Adrenal Glands: Normal. Kidneys/Ureters/Bladder: Kidneys are mildly atrophic. 1.7 cm probable simple cyst in the left kidney. No hydronephrosis. The ureters are normal. There is an unchanged bladder mass on the right measuring about 2.2 x 2.5 cm. Reproductive Organs: Prostate gland is unchanged in appearance and contains calcifications. Stomach, small bowel, and colon: Stomach is normal. No small bowel obstruction. Appendix is normal. T here is sigmoid diverticulosis. Vasculature: There is a fusiform infrarenal abdominal aortic aneurysm measuring up to 5.4 x 5.1 cm, u nchanged. There is enlargement of the right common iliac artery measuring 3.5 x 3.8 cm, unchanged. En largement of the left common iliac artery measuring 3.2 cm is unchanged. Moderate to severe calcified aortoiliac atherosclerosis. Lymph Nodes: No lymphadenopathy in the abdomen and pelvis. Peritoneum and retroperitoneum: No free fluid or free air. Bones: Sclerotic lesions throughout throughout the most of the left iliac bone and left superior and inferior pubic ramus are unchanged. There are smaller scattered sclerotic lesions elsewhere in the pe lvis and lumbar spine that are also unchanged. No acute osseous abnormality. IMPRESSION: 1. Unchanged small to moderate pleural effusions. 2. Unchanged 2.5 cm subpleural mass versus round atelectasis in the posterior left lower lobe and con solidative opacities in the posterior right lower lobe are unchanged. 3. Unchanged groundglass nodules in the apices. 4. Unchanged emphysema and interstitial changes in the apices. 5. Unchanged bladder mass, either primary malignancy or extending from the prostate gland. 6. Unchanged sclerotic bone metastases. 7. Unchanged abdominal aortic aneurysm measuring 5.4 cm in diameter and bilateral common iliac artery aneurysms. Electronically signed by: Ligia Stephens MD (08/25/2021 3:56 PM) [id number]
--- NOTE | 2021-08-25 17:49 | RAD ---
Whole-body bone scan Clinical indications: Prostate cancer. COMPARISON: February 24, 2021. TECHNIQUE: After IV infusion of 25.4 mCi of technetium 99m MDP, delayed anterior and posterior planar images of the whole body were performed. FINDINGS: Bilateral renal function is evident. There is uptake involving the thoracic spine especiall y the lower aspect at about T11 consistent with osseous metastatic disease here. This is unchanged. A gain seen is uptake involving the right scapula in the glenoid region which is unchanged. Again seen is activity involving the AC joints bilaterally which may be degenerative in nature. Again seen is up take involving the sternoclavicular joints bilaterally which may be degenerative in nature. Again see n is uptake involving the left iliac bone and acetabular area which is unchanged. There is mild degen erative activity involving both knees more prominently involving the patellofemoral joint compartment of the right knee. This is stable. IMPRESSION: Since the prior study, there has been no significant change in the thoracic spine osseous metastatic disease. Unchanged uptake involving the left iliac bone area corresponding to sclerotic l esion involving the hemipelvis seen on previous CT. Uptake involving the right scapula which is uncha nged. No new abnormality is evident elsewhere. Electronically signed by: Emmanuel Lucero MD (08/25/2021 5:46 PM) [id number]
== END ==
LOC: NM 08:22
PROVIDERS: ATTEND Internal Medicine Hematology & Oncology
DX: C61 Malignant neoplasm of prostate (principal); C79.51 Secondary malignant neoplasm of bone; J90 Pleural effusion, not elsewhere classified; J43.9 Emphysema, unspecified; R91.8 Other nonspecific abnormal finding of lung field; I71.4 Abdominal aortic aneurysm, without rupture; N26.1 Atrophy of kidney (terminal); N32.89 Other specified disorders of bladder; I25.10 Atherosclerotic heart disease of native coronary artery without angina pectoris; K57.30 Diverticulosis of large intestine without perforation or abscess without bleeding; M89.8X9 Other specified disorders of bone, unspecified site
CPT/HCPCS: 71250; 74176; 78306; A9503; Q9966

== ENCOUNTER → 2021-09-13 | Outpatient (CLI) | payer BC ==
[2017-12-18 11:20] VITALS: BP 188/82
[~2021-09-13] MED LIST changes: +ATOR40TA59 PO; -CONTRAST GIVEN. MC PRN; -IOHEXOL 240 MG/ML 50ML VIAL. PO ONE; +LOSA100T14 PO; +NAPR500T8 PO; +PRED5TAB PO
[2021-09-13 12:37] LABS: BASO % 1 % (0-3); EOS # 0.1 x10^3/uL (0.0-0.7); EOS % 1 % (0-3); HEMATOCRIT 38.1 % (39.0-53.0); HEMOGLOBIN 12.4 g/dL (13.0-17.5); LYMPH # 1.9 x10^3/uL (1.0-4.8); LYMPH % 26 % (24-48); MEAN CORPUSCULAR HEMOGLOBIN 28 pg (25-35); MEAN CORPUSCULAR HGB CONC 33 g/dL (31-37); MEAN CORPUSCULAR VOLUME 86 fL (79-100); MONO # 0.6 x10^3/uL (0.0-1.1); MONO % 8 % (0-9); NEUT # 4.8 x10^3/uL (1.8-7.7); NEUT % 65 % (31-73); PLATELET COUNT 187 x10^3/uL (140-400); RED BLOOD COUNT 4.41 x10^6/uL (4.30-5.70); RED CELL DISTRIBUTION WIDTH 16.4 % (11.5-14.5); WHITE BLOOD COUNT 7.4 x10^3/uL (4.0-11.0)
[2021-09-13 12:53] LABS: CREATININE 1.7 mg/dL (0.7-1.3); GFR 39.5; POTASSIUM 3.6 mmol/L (3.5-5.1)
[2021-09-13 12:59] LABS: ALBUMIN 2.8 g/dL (3.4-5.0); ALBUMIN/GLOBULIN RATIO 0.7 (1.0-1.7); PHOSPHORUS 2.7 mg/dL (2.6-4.7); TOTAL BILIRUBIN 0.9 mg/dL (0.2-1.0)
== END ==
LOC: ONCLAB 12:21
PROVIDERS: ATTEND Physician Assistant
DX: C61 Malignant neoplasm of prostate (principal); I71.4 Abdominal aortic aneurysm, without rupture
CPT/HCPCS: 36415; 80053; 83615; 83735; 84100; 84153; 85025; G0103

== ENCOUNTER → 2021-09-27 | Outpatient (CLI) | payer BC ==
[2017-12-18 11:20] VITALS: BP 188/82
[~2021-09-27] MED LIST changes: -ATOR40TA59 PO; -LOSA100T14 PO; -NAPR500T8 PO; -PRED5TAB PO
[2021-09-27 14:07] LABS: BASO % 1 % (0-3); EOS # 0.1 x10^3/uL (0.0-0.7); EOS % 2 % (0-3); HEMATOCRIT 38.9 % (39.0-53.0); HEMOGLOBIN 12.5 g/dL (13.0-17.5); LYMPH # 1.8 x10^3/uL (1.0-4.8); LYMPH % 28 % (24-48); MEAN CORPUSCULAR HEMOGLOBIN 28 pg (25-35); MEAN CORPUSCULAR HGB CONC 32 g/dL (31-37); MEAN CORPUSCULAR VOLUME 86 fL (79-100); MONO # 0.5 x10^3/uL (0.0-1.1); MONO % 7 % (0-9); NEUT % 62 % (31-73); PLATELET COUNT 188 x10^3/uL (140-400); RED BLOOD COUNT 4.53 x10^6/uL (4.30-5.70); RED CELL DISTRIBUTION WIDTH 16.5 % (11.5-14.5); WHITE BLOOD COUNT 6.4 x10^3/uL (4.0-11.0)
[2021-09-27 14:14] LABS: CALCIUM 8.7 mg/dL (8.5-10.1); CREATININE 1.7 mg/dL (0.7-1.3); GFR 39.5; POTASSIUM 3.8 mmol/L (3.5-5.1)
[2021-09-27 14:20] LABS: ALBUMIN 2.7 g/dL (3.4-5.0); ALBUMIN/GLOBULIN RATIO 0.7 (1.0-1.7); MAGNESIUM 2.1 mg/dL (1.8-2.4); PHOSPHORUS 3.3 mg/dL (2.6-4.7); TOTAL BILIRUBIN 0.9 mg/dL (0.2-1.0); TOTAL PROTEIN 6.6 g/dL (6.4-8.2)
== END ==
LOC: ONCLAB 13:41
PROVIDERS: ATTEND Internal Medicine Hematology & Oncology
DX: C61 Malignant neoplasm of prostate (principal)
CPT/HCPCS: 36415; 80053; 83615; 83735; 84100; 85025

== ENCOUNTER → 2021-10-05 | Outpatient (CLI) | payer BC ==
[2017-12-18 11:20] VITALS: BP 188/82
[2021-10-05 10:44] LABS: BASO % 1 % (0-3); EOS # 0.1 x10^3/uL (0.0-0.7); EOS % 2 % (0-3); HEMATOCRIT 37.1 % (39.0-53.0); HEMOGLOBIN 11.9 g/dL (13.0-17.5); LYMPH % 32 % (24-48); MEAN CORPUSCULAR HEMOGLOBIN 28 pg (25-35); MEAN CORPUSCULAR HGB CONC 32 g/dL (31-37); MEAN CORPUSCULAR VOLUME 85 fL (79-100); MONO # 0.6 x10^3/uL (0.0-1.1); MONO % 9 % (0-9); NEUT # 3.6 x10^3/uL (1.8-7.7); NEUT % 57 % (31-73); PLATELET COUNT 180 x10^3/uL (140-400); RED BLOOD COUNT 4.34 x10^6/uL (4.30-5.70); RED CELL DISTRIBUTION WIDTH 16.3 % (11.5-14.5); WHITE BLOOD COUNT 6.3 x10^3/uL (4.0-11.0)
[2021-10-05 10:54] LABS: CALCIUM 8.2 mg/dL (8.5-10.1); CREATININE 1.7 mg/dL (0.7-1.3); GFR 39.5
[2021-10-05 11:06] LABS: ALBUMIN 2.7 g/dL (3.4-5.0); ALBUMIN/GLOBULIN RATIO 0.6 (1.0-1.7); MAGNESIUM 2.2 mg/dL (1.8-2.4); PHOSPHORUS 2.7 mg/dL (2.6-4.7); TOTAL BILIRUBIN 0.7 mg/dL (0.2-1.0); TOTAL PROTEIN 7.3 g/dL (6.4-8.2)
== END ==
LOC: ONCLAB 09:58
PROVIDERS: ATTEND Internal Medicine Hematology & Oncology
DX: C61 Malignant neoplasm of prostate (principal)
CPT/HCPCS: 36415; 80053; 83615; 83735; 84100; 85025

== ENCOUNTER 2021-10-27 08:12 | Outpatient (CLI) | payer BC ==
[~2021-10-27] VITALS: Ht 172.7 cm; Wt 84.0 kg
[2021-10-27] MEDS ORDERED: ATOR40TA59 PO (08:42)
[2021-10-27] MEDS ORDERED: LOSA100T14 PO (08:42)
[2021-10-27] MEDS ORDERED: PRED5TAB PO (08:42)
[2021-10-27] MEDS ORDERED: NAPR500T8 PO (08:42)
[2021-10-27 08:45] VITALS: BP 197/98
[2021-10-27 08:52] LABS: BASO % 1 % (0-3); EOS # 0.1 x10^3/uL (0.0-0.7); EOS % 2 % (0-3); HEMOGLOBIN 12.6 g/dL (13.0-17.5); LYMPH # 1.8 x10^3/uL (1.0-4.8); LYMPH % 32 % (24-48); MEAN CORPUSCULAR HEMOGLOBIN 27 pg (25-35); MEAN CORPUSCULAR HGB CONC 32 g/dL (31-37); MEAN CORPUSCULAR VOLUME 84 fL (79-100); MONO # 0.5 x10^3/uL (0.0-1.1); MONO % 9 % (0-9); NEUT # 3.2 x10^3/uL (1.8-7.7); NEUT % 56 % (31-73); PLATELET COUNT 184 x10^3/uL (140-400); RED BLOOD COUNT 4.66 x10^6/uL (4.30-5.70); RED CELL DISTRIBUTION WIDTH 16.2 % (11.5-14.5); WHITE BLOOD COUNT 5.7 x10^3/uL (4.0-11.0)
[2021-10-27 09:01] LABS: PROTHROMBIN TIME PATIENT 12.7 SEC (11.7-14.0)
[2021-10-27] MEDS ORDERED: LIDOCAINE 1%/EPI 1:100,000 20 ML VIAL. ONE (10:15)
[2021-10-27] MEDS ORDERED: MIDAZOLAM HCL/PF 2 MG/2 ML VIAL. ONE (10:18)
[2021-10-27] MEDS ORDERED: fentaNYL PF VIAL 100 MCG/2 ML VIAL ONE (10:19)
[2021-10-27] MEDS: fentaNYL PF VIAL 100 MCG/2 ML VIAL IV ONE (10:35)
[2021-10-27] MEDS: MIDAZOLAM HCL/PF 2 MG/2 ML VIAL. IV ONE (10:35)
[2021-10-27] MEDS: LIDOCAINE 1%/EPI 1:100,000 20 ML VIAL. SQ ONE (10:40)
[2021-10-27 11:00] VITALS: BP 175/77
[2021-10-27 11:15] VITALS: BP 189/86
[2021-10-27 11:30] VITALS: BP 175/89
[2021-10-27 11:45] VITALS: BP 181/89
[2021-10-27 12:00] VITALS: BP 134/71
--- NOTE | 2021-10-27 12:20 | NUR ---
PIV removed, VS stable. No bleeding at port site. Instructions given to patient and daughter on site care, sedation. Verbalized understanding. No questions at time of d/c. All belongings, including wallet, taken w/ patient at time of d/c.
--- NOTE | 2021-10-27 13:59 | RAD ---
PROCEDURE: Fluoroscopically and ultrasound-guided placement of left internal jugular tunnel central v enous catheter with port (Bard PowerPort, Groshong tip ). Clinical Indication: Chemotherapy access Discussion: The risks and benefits of the procedure were discussed with the patient and/or their customer support representative. Informed consent was obtained. The patient was brought to the fluoroscopy suite and placed in supine position. A time out procedure was performed. The right neck and chest were prepped and draped using maximum sterile barrier technique including th e use of: Current guideline approved cutaneous antisepsis, a large sterile sheet to establish a steri le field. Additionally the repeat photocomposing machine operator wore a hat, mask, sterile gloves, a sterile gown during the proce dure as well as practiced acceptable hand hygiene prior to placing the port. Ultrasound-guided access: Ultrasound evaluation showed the left jugular vein to be patent and compre ssible. 1 % lidocaine with epinephrine was administered to the skin and subcutaneous tissues overlyin g the right neck and chest. Under direct ultrasound guidance a single wall puncture was made followed by tract dilation and placement of a sheath. An ultrasound image was saved and sent to PACS. Next, a n incision was made in an infraclavicular location and a pocket created. The catheter was tunneled between the pocket and the venotomy site. The catheter was advanced through the peel away sheath, un didi fluoroscopic guidance, such that it's tip was in the mid right atrium. The catheter was connected to the port reservoir. The port was accessed and found to flush and aspirate normally. The reservoir was then placed into the subcutaneous pocket. The wound was closed in layers using 3 Vicryl and 4-0 Vicryl suture. Dermabond was applied overlying the wound, and venotomy site. The patient tolerated p rocedure without immediate complication. Sedation: Conscious sedation was performed for 30 minutes. Sedation was carried out while the patie nt was continually monitored by a member of the Radiology nursing staff. Continual cardiopulmonary m onitoring was carried out during the procedure. The patient tolerated the procedure well and there w ere no immediate complications. Fluoroscopy time: 1.4 mins Dose area product 4 richards centimeters squared Impression: Successful ultrasound and fluoroscopically guided placement of left internal jugular tunn el central venous catheter with port (Bard PowerPort, Groshong tip). Electronically signed by: Carson Jimenez MD (10/27/2021 1:57 PM) [id number]
--- NOTE | 2021-10-27 13:59 | RAD ---
PROCEDURE: Fluoroscopically and ultrasound-guided placement of left internal jugular tunnel central v enous catheter with port (Bard PowerPort, Groshong tip ). Clinical Indication: Chemotherapy access Discussion: The risks and benefits of the procedure were discussed with the patient and/or their sales and service representative. Informed consent was obtained. The patient was brought to the fluoroscopy suite and placed in supine position. A time out procedure was performed. The right neck and chest were prepped and draped using maximum sterile barrier technique including th e use of: Current guideline approved cutaneous antisepsis, a large sterile sheet to establish a steri le field. Additionally the lead shop operator wore a hat, mask, sterile gloves, a sterile gown during the proce dure as well as practiced acceptable hand hygiene prior to placing the port. Ultrasound-guided access: Ultrasound evaluation showed the left jugular vein to be patent and compre ssible. 1 % lidocaine with epinephrine was administered to the skin and subcutaneous tissues overlyin g the right neck and chest. Under direct ultrasound guidance a single wall puncture was made followed by tract dilation and placement of a sheath. An ultrasound image was saved and sent to PACS. Next, a n incision was made in an infraclavicular location and a pocket created. The catheter was tunneled between the pocket and the venotomy site. The catheter was advanced through the peel away sheath, un didi fluoroscopic guidance, such that it's tip was in the mid right atrium. The catheter was connected to the port reservoir. The port was accessed and found to flush and aspirate normally. The reservoir was then placed into the subcutaneous pocket. The wound was closed in layers using 3 Vicryl and 4-0 Vicryl suture. Dermabond was applied overlying the wound, and venotomy site. The patient tolerated p rocedure without immediate complication. Sedation: Conscious sedation was performed for 30 minutes. Sedation was carried out while the patie nt was continually monitored by a member of the Radiology nursing staff. Continual cardiopulmonary m onitoring was carried out during the procedure. The patient tolerated the procedure well and there w ere no immediate complications. Fluoroscopy time: 1.4 mins Dose area product 4 richards centimeters squared Impression: Successful ultrasound and fluoroscopically guided placement of left internal jugular tunn el central venous catheter with port (Bard PowerPort, Groshong tip). Electronically signed by: Carson Jimenez MD (10/27/2021 1:57 PM) [id number]
== END 2021-10-27 12:10 | disposition home or self-care (01) ==
LOC: INTRAD 08:12
PROVIDERS: ATTEND Internal Medicine Hematology & Oncology
DX: Z45.2 Encounter for adjustment and management of vascular access device (principal); C61 Malignant neoplasm of prostate; I12.9 Hypertensive chronic kidney disease with stage 1 through stage 4 chronic kidney disease, or unspecified chronic kidney disease; N18.30 Chronic kidney disease, stage 3 unspecified; E78.00 Pure hypercholesterolemia, unspecified; M19.90 Unspecified osteoarthritis, unspecified site; Z79.899 Other long term (current) drug therapy; Z98.890 Other specified postprocedural states
CPT/HCPCS: 36415; 36561; 76937; 77001; 85025; 85610; 99152; 99153; C1788; C1892; J0690; J2250; J3010; J3490; 76942

== ENCOUNTER → 2021-11-09 | Outpatient (CLI) | payer BC ==
[2021-10-27 12:00] VITALS: BP 134/71
[~2021-11-09] MED LIST changes: +ATOR40TA59 PO; +LOSA100T14 PO; +NAPR500T8 PO; +PRED5TAB PO
[2021-11-09 09:27] LABS: BASO % 1 % (0-3); EOS # 0.1 x10^3/uL (0.0-0.7); EOS % 2 % (0-3); HEMATOCRIT 35.6 % (39.0-53.0); HEMOGLOBIN 11.6 g/dL (13.0-17.5); LYMPH % 31 % (24-48); MEAN CORPUSCULAR HEMOGLOBIN 27 pg (25-35); MEAN CORPUSCULAR HGB CONC 33 g/dL (31-37); MEAN CORPUSCULAR VOLUME 83 fL (79-100); MONO # 0.6 x10^3/uL (0.0-1.1); MONO % 9 % (0-9); NEUT # 3.7 x10^3/uL (1.8-7.7); NEUT % 58 % (31-73); PLATELET COUNT 154 x10^3/uL (140-400); RED BLOOD COUNT 4.27 x10^6/uL (4.30-5.70); RED CELL DISTRIBUTION WIDTH 16.1 % (11.5-14.5); WHITE BLOOD COUNT 6.4 x10^3/uL (4.0-11.0)
[2021-11-09 09:55] LABS: CALCIUM 7.7 mg/dL (8.5-10.1); CREATININE 1.5 mg/dL (0.7-1.3); GFR 55.2; POTASSIUM 3.6 mmol/L (3.5-5.1)
[2021-11-09 09:59] LABS: ALBUMIN 2.8 g/dL (3.4-5.0); ALBUMIN/GLOBULIN RATIO 0.7 (1.0-1.7); TOTAL BILIRUBIN 1.2 mg/dL (0.2-1.0); TOTAL PROTEIN 6.6 g/dL (6.4-8.2)
== END ==
LOC: ONCLAB 09:10
PROVIDERS: ATTEND Internal Medicine Hematology & Oncology
DX: C61 Malignant neoplasm of prostate (principal); I71.4 Abdominal aortic aneurysm, without rupture
CPT/HCPCS: 36415; 80053; 83615; 83735; 84100; 85025

== ENCOUNTER → 2021-11-17 | Outpatient (CLI) | payer BC ==
[2021-10-27 12:00] VITALS: BP 134/71
[2021-11-17 10:19] LABS: CALCIUM 8.1 mg/dL (8.5-10.1); CREATININE 1.5 mg/dL (0.7-1.3); GFR 55.2; POTASSIUM 3.5 mmol/L (3.5-5.1)
[2021-11-17 10:22] LABS: BASO % 1 % (0-3); EOS % 1 % (0-3); HEMATOCRIT 31.1 % (39.0-53.0); LYMPH # 1.2 x10^3/uL (1.0-4.8); LYMPH % 64 % (24-48); MEAN CORPUSCULAR HEMOGLOBIN 27 pg (25-35); MEAN CORPUSCULAR HGB CONC 32 g/dL (31-37); MEAN CORPUSCULAR VOLUME 84 fL (79-100); MONO # 0.3 x10^3/uL (0.0-1.1); MONO % 17 % (0-9); NEUT # 0.3 x10^3/uL (1.8-7.7); NEUT % 17 % (31-73); PLATELET COUNT 130 x10^3/uL (140-400); RED BLOOD COUNT 3.72 x10^6/uL (4.30-5.70); RED CELL DISTRIBUTION WIDTH 15.8 % (11.5-14.5)
[2021-11-17 10:25] LABS: ALBUMIN 2.2 g/dL (3.4-5.0); ALBUMIN/GLOBULIN RATIO 0.5 (1.0-1.7); TOTAL BILIRUBIN 0.6 mg/dL (0.2-1.0); TOTAL PROTEIN 6.3 g/dL (6.4-8.2)
[2021-11-17 10:35] LABS: WHITE BLOOD COUNT 1.8 x10^3/uL (4.0-11.0)
[2021-11-17 12:40] LABS: % ATYL 1 % (0-0); % LYMPHS 70 % (24-48); % MONOS 13 % (0-10); % SEGS 16 % (35-66)
[2021-11-17 12:43] LABS: PLT ESTIMATE DECREASED (ADEQUATE)
== END ==
LOC: ONCLAB 09:39
PROVIDERS: ATTEND Internal Medicine Hematology & Oncology
DX: C61 Malignant neoplasm of prostate (principal)
CPT/HCPCS: 36415; 80053; 85007; 85025

== ENCOUNTER → 2021-11-30 | Outpatient (CLI) | payer BC ==
[2021-11-30 10:05] LABS: BASO # 0.1 x10^3/uL (0.0-0.2); BASO % 1 % (0-3); EOS # 0.1 x10^3/uL (0.0-0.7); EOS % 1 % (0-3); HEMATOCRIT 34.3 % (39.0-53.0); HEMOGLOBIN 10.7 g/dL (13.0-17.5); LYMPH # 2.2 x10^3/uL (1.0-4.8); LYMPH % 21 % (24-48); MEAN CORPUSCULAR HEMOGLOBIN 26 pg (25-35); MEAN CORPUSCULAR HGB CONC 31 g/dL (31-37); MEAN CORPUSCULAR VOLUME 84 fL (79-100); MONO # 0.9 x10^3/uL (0.0-1.1); MONO % 8 % (0-9); NEUT # 7.4 x10^3/uL (1.8-7.7); NEUT % 70 % (31-73); PLATELET COUNT 293 x10^3/uL (140-400); RED BLOOD COUNT 4.08 x10^6/uL (4.30-5.70); RED CELL DISTRIBUTION WIDTH 16.5 % (11.5-14.5); WHITE BLOOD COUNT 10.7 x10^3/uL (4.0-11.0)
[2021-11-30 10:15] LABS: CALCIUM 7.8 mg/dL (8.5-10.1); CREATININE 1.7 mg/dL (0.7-1.3); GFR 47.8; POTASSIUM 4.2 mmol/L (3.5-5.1)
[2021-11-30 10:22] LABS: ALBUMIN 2.5 g/dL (3.4-5.0); ALBUMIN/GLOBULIN RATIO 0.6 (1.0-1.7); MAGNESIUM 2.2 mg/dL (1.8-2.4); PHOSPHORUS 2.9 mg/dL (2.6-4.7); TOTAL BILIRUBIN 0.7 mg/dL (0.2-1.0); TOTAL PROTEIN 6.9 g/dL (6.4-8.2)
== END ==
LOC: ONCLAB 09:41
PROVIDERS: ATTEND Internal Medicine Hematology & Oncology
DX: C61 Malignant neoplasm of prostate (principal)
CPT/HCPCS: 80053; 83615; 83735; 84100; 84153; 84154; 85025

== ENCOUNTER → 2021-12-22 | Outpatient (CLI) | payer BC ==
[2021-12-22 10:13] LABS: CREATININE 1.5 mg/dL (0.7-1.3); GFR 55.2
[2021-12-22 10:19] LABS: ALBUMIN 2.5 g/dL (3.4-5.0); ALBUMIN/GLOBULIN RATIO 0.6 (1.0-1.7); TOTAL BILIRUBIN 0.7 mg/dL (0.2-1.0); TOTAL PROTEIN 6.6 g/dL (6.4-8.2)
[2021-12-22 10:22] LABS: BASO # 0.1 x10^3/uL (0.0-0.2); BASO % 1 % (0-3); EOS # 0.2 x10^3/uL (0.0-0.7); EOS % 2 % (0-3); HEMATOCRIT 32.6 % (39.0-53.0); HEMOGLOBIN 10.2 g/dL (13.0-17.5); LYMPH # 1.9 x10^3/uL (1.0-4.8); LYMPH % 21 % (24-48); MEAN CORPUSCULAR HEMOGLOBIN 26 pg (25-35); MEAN CORPUSCULAR HGB CONC 31 g/dL (31-37); MEAN CORPUSCULAR VOLUME 85 fL (79-100); MONO % 12 % (0-9); NEUT # 5.6 x10^3/uL (1.8-7.7); NEUT % 64 % (31-73); PLATELET COUNT 290 x10^3/uL (140-400); RED BLOOD COUNT 3.86 x10^6/uL (4.30-5.70); RED CELL DISTRIBUTION WIDTH 17.6 % (11.5-14.5); WHITE BLOOD COUNT 8.8 x10^3/uL (4.0-11.0)
== END ==
LOC: ONCLAB 09:39
PROVIDERS: ATTEND Internal Medicine Hematology & Oncology
DX: C61 Malignant neoplasm of prostate (principal)
CPT/HCPCS: 80053; 84153; 84154; 85025

== ENCOUNTER → 2022-01-05 | Outpatient (CLI) | payer BC ==
[2022-01-05 10:29] LABS: BASO % 1 % (0-3); EOS % 0 % (0-3); HEMATOCRIT 29.2 % (39.0-53.0); HEMOGLOBIN 9.3 g/dL (13.0-17.5); LYMPH # 1.7 x10^3/uL (1.0-4.8); LYMPH % 41 % (24-48); MEAN CORPUSCULAR HEMOGLOBIN 26 pg (25-35); MEAN CORPUSCULAR HGB CONC 32 g/dL (31-37); MEAN CORPUSCULAR VOLUME 82 fL (79-100); MONO # 0.9 x10^3/uL (0.0-1.1); MONO % 23 % (0-9); NEUT # 1.4 x10^3/uL (1.8-7.7); NEUT % 35 % (31-73); PLATELET COUNT 219 x10^3/uL (140-400); RED BLOOD COUNT 3.58 x10^6/uL (4.30-5.70); RED CELL DISTRIBUTION WIDTH 17.6 % (11.5-14.5); WHITE BLOOD COUNT 4.1 x10^3/uL (4.0-11.0)
[2022-01-05 10:49] LABS: CALCIUM 8.5 mg/dL (8.5-10.1); CREATININE 2.2 mg/dL (0.7-1.3); GFR 35.5; POTASSIUM 3.4 mmol/L (3.5-5.1)
[2022-01-05 10:56] LABS: ALBUMIN 2.4 g/dL (3.4-5.0); ALBUMIN/GLOBULIN RATIO 0.6 (1.0-1.7); TOTAL BILIRUBIN 0.8 mg/dL (0.2-1.0); TOTAL PROTEIN 6.6 g/dL (6.4-8.2)
[2022-01-05 11:10] LABS: % ATYL 1 % (0-0); % BANDS 1 % (0-9); % BASOS 1 % (0-3); % LYMPHS 39 % (24-48); % MONOS 17 % (0-10); % SEGS 41 % (35-66); PLT ESTIMATE ADEQUATE (ADEQUATE)
[2022-01-05 11:11] LABS: ANISOCYTOSIS SLIGHT; OVALOCYTES FEW
== END ==
LOC: ONCLAB 09:54
PROVIDERS: ATTEND Internal Medicine Hematology & Oncology
DX: C61 Malignant neoplasm of prostate (principal)
CPT/HCPCS: 36415; 80053; 85007; 85025

== ENCOUNTER → 2022-01-19 | Outpatient (CLI) | payer BC ==
[2022-01-19 09:51] LABS: BASO # 0.1 x10^3/uL (0.0-0.2); BASO % 1 % (0-3); EOS # 0.3 x10^3/uL (0.0-0.7); EOS % 5 % (0-3); HEMATOCRIT 32.3 % (39.0-53.0); HEMOGLOBIN 9.9 g/dL (13.0-17.5); LYMPH % 30 % (24-48); MEAN CORPUSCULAR HEMOGLOBIN 26 pg (25-35); MEAN CORPUSCULAR HGB CONC 31 g/dL (31-37); MEAN CORPUSCULAR VOLUME 83 fL (79-100); MONO # 0.7 x10^3/uL (0.0-1.1); MONO % 11 % (0-9); NEUT # 3.5 x10^3/uL (1.8-7.7); NEUT % 53 % (31-73); PLATELET COUNT 275 x10^3/uL (140-400); RED BLOOD COUNT 3.88 x10^6/uL (4.30-5.70); RED CELL DISTRIBUTION WIDTH 18.8 % (11.5-14.5); WHITE BLOOD COUNT 6.6 x10^3/uL (4.0-11.0)
[2022-01-19 10:00] LABS: CALCIUM 8.7 mg/dL (8.5-10.1); CREATININE 2.5 mg/dL (0.7-1.3); GFR 30.6; POTASSIUM 3.5 mmol/L (3.5-5.1)
[2022-01-19 10:06] LABS: ALBUMIN 2.6 g/dL (3.4-5.0); ALBUMIN/GLOBULIN RATIO 0.6 (1.0-1.7); MAGNESIUM 2.2 mg/dL (1.8-2.4); PHOSPHORUS 2.5 mg/dL (2.6-4.7); TOTAL BILIRUBIN 0.6 mg/dL (0.2-1.0); TOTAL PROTEIN 6.9 g/dL (6.4-8.2)
[2022-01-20 19:10] LABS: FREE PSA/PSA RATIO 9.2 % (.); PSA FREE 3.93 ng/mL; PSA TOTAL 42.6 ng/mL (0.0-4.0)
== END ==
LOC: ONCLAB 09:25
PROVIDERS: ATTEND Internal Medicine Hematology & Oncology
DX: C61 Malignant neoplasm of prostate (principal)
CPT/HCPCS: 36415; 80053; 83735; 84100; 84153; 84154; 85025

== ENCOUNTER → 2022-02-07 | Outpatient (CLI) | payer BC ==
[2022-02-07 10:50] LABS: BASO # 0.1 x10^3/uL (0.0-0.2); BASO % 1 % (0-3); EOS % 0 % (0-3); HEMATOCRIT 30.6 % (39.0-53.0); HEMOGLOBIN 9.6 g/dL (13.0-17.5); LYMPH # 1.5 x10^3/uL (1.0-4.8); LYMPH % 17 % (24-48); MEAN CORPUSCULAR HEMOGLOBIN 26 pg (25-35); MEAN CORPUSCULAR HGB CONC 31 g/dL (31-37); MEAN CORPUSCULAR VOLUME 84 fL (79-100); MONO % 12 % (0-9); NEUT # 6.2 x10^3/uL (1.8-7.7); NEUT % 70 % (31-73); PLATELET COUNT 308 x10^3/uL (140-400); RED BLOOD COUNT 3.63 x10^6/uL (4.30-5.70); RED CELL DISTRIBUTION WIDTH 20.1 % (11.5-14.5); WHITE BLOOD COUNT 8.9 x10^3/uL (4.0-11.0)
[2022-02-07 11:12] LABS: CALCIUM 8.4 mg/dL (8.5-10.1); CREATININE 2.2 mg/dL (0.7-1.3); GFR 35.5; POTASSIUM 3.7 mmol/L (3.5-5.1)
[2022-02-07 11:14] LABS: ALBUMIN 2.4 g/dL (3.4-5.0); ALBUMIN/GLOBULIN RATIO 0.6 (1.0-1.7); MAGNESIUM 2.1 mg/dL (1.8-2.4); PHOSPHORUS 2.4 mg/dL (2.6-4.7); TOTAL BILIRUBIN 0.8 mg/dL (0.2-1.0); TOTAL PROTEIN 6.4 g/dL (6.4-8.2)
[2022-02-07 11:36] LABS: ANISOCYTOSIS PRESENT; PLT ESTIMATE ADEQUATE (ADEQUATE)
[2022-02-10 13:27] LABS: FREE PSA/PSA RATIO 9.2 % (.); PSA FREE 3.28 ng/mL; PSA TOTAL 35.8 ng/mL (0.0-4.0)
== END ==
LOC: ONCLAB 09:42
PROVIDERS: ATTEND Internal Medicine Hematology & Oncology
DX: C61 Malignant neoplasm of prostate (principal)
CPT/HCPCS: 36415; 80053; 83735; 84100; 84153; 84154; 85025

== ENCOUNTER → 2022-03-14 | Outpatient (CLI) | payer BC ==
[2022-03-14 14:29] LABS: BASO # 0.1 x10^3/uL (0.0-0.2); BASO % 1 % (0-3); EOS % 0 % (0-3); HEMATOCRIT 28.2 % (39.0-53.0); HEMOGLOBIN 9.1 g/dL (13.0-17.5); LYMPH # 1.8 x10^3/uL (1.0-4.8); LYMPH % 16 % (24-48); MEAN CORPUSCULAR HEMOGLOBIN 27 pg (25-35); MEAN CORPUSCULAR HGB CONC 32 g/dL (31-37); MEAN CORPUSCULAR VOLUME 85 fL (79-100); MONO # 1.1 x10^3/uL (0.0-1.1); MONO % 10 % (0-9); NEUT # 8.1 x10^3/uL (1.8-7.7); NEUT % 73 % (31-73); PLATELET COUNT 241 x10^3/uL (140-400); RED BLOOD COUNT 3.32 x10^6/uL (4.30-5.70); RED CELL DISTRIBUTION WIDTH 20.8 % (11.5-14.5); WHITE BLOOD COUNT 11.1 x10^3/uL (4.0-11.0)
[2022-03-14 14:44] LABS: CALCIUM 8.5 mg/dL (8.5-10.1); CREATININE 2.4 mg/dL (0.7-1.3); GFR 32.1; POTASSIUM 3.8 mmol/L (3.5-5.1)
[2022-03-14 14:49] LABS: ALBUMIN 2.7 g/dL (3.4-5.0); ALBUMIN/GLOBULIN RATIO 0.7 (1.0-1.7); TOTAL PROTEIN 6.4 g/dL (6.4-8.2)
[2022-03-14 15:19] LABS: ANISOCYTOSIS SLIGHT; BURR CELLS PRESENT; PLT ESTIMATE ADEQUATE (ADEQUATE)
[2022-03-15 13:19] LABS: FREE PSA/PSA RATIO 8.4 % (.); PSA FREE 3.29 ng/mL; PSA TOTAL 39.3 ng/mL (0.0-4.0)
== END ==
LOC: ONCLAB 03-16 13:36
PROVIDERS: ATTEND Internal Medicine Hematology & Oncology
DX: C79.51 Secondary malignant neoplasm of bone (principal)
CPT/HCPCS: 36415; 80053; 84153; 84154; 85025